=== PATIENT | male | born 1990 | race Caucasian/White ===

== ENCOUNTER 2020-09-04 13:30 | Emergency (ER) | payer OTHER, SELFPAY ==
[2020-09-04 13:30] VITALS: BP 158/83; PULSE 87; RESP 20; TEMP 36.9; O2SAT 98; BMI 26.6
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
[2020-09-04 15:04] VITALS: BP 158/83; PULSE 87; RESP 20; TEMP 36.9; O2SAT 98
== END 2020-09-04 15:10 | disposition home or self-care (01) ==
PROVIDERS: Emergency Provider Nurse Practitioner
DX: S50.311A Abrasion of right elbow, initial encounter (principal); S59.901A Unspecified injury of right elbow, initial encounter; V86.59XA Driver of other special all-terrain or other off-road motor vehicle injured in nontraffic accident, initial encounter; Y92.89 Other specified places as the place of occurrence of the external cause
CPT/HCPCS: 73060; 73080; 99202; G0463

== ENCOUNTER → 2020-09-13 08:55 | Outpatient (CLI) | payer OTHER, SELFPAY ==
--- NOTE | 2020-09-13 09:07 | XR_ITS ---
PROCEDURE: XR ELBOW RT MIN 3V CLINICAL INDICATION: RIGHT ELBOW INJURY COMPARISON: CR XR ELBOW LT MIN 3V from 09/04/2020 FINDINGS: No fracture or dislocation. No lytic or blastic change. There is normal mineralization. The joint spaces are well-preserved. No significant degenerative/arthritic changes. No erosive changes evident. Other findings:None. IMPRESSION: No acute findings. Dictated by: Justin Alberto MD 09/13/2020 11:54 Justin Alberto MD in [place] 09/13/2020 11:54
== END ==
PROVIDERS: Visit Provider Orthopaedic Surgery
DX: S59.901A Unspecified injury of right elbow, initial encounter (principal)
CPT/HCPCS: 73080